=== PATIENT | male | born 1985 | race Caucasian/White ===

== ENCOUNTER 2022-09-30 16:40 | Emergency (ER) | payer BC ==
[2022-09-30 16:57] VITALS: RESP 16
--- NOTE | 2022-09-30 17:43 | ED ---
Upper Extremity HPI - General Chief Complaint: Extremity Injury, Upper Stated Complaint: R hand injury Time Seen by Provider: 09/30/22 17:02 Source: patient Mode of arrival: ambulatory Limitations: no limitations - History of Present Illness Complaint: Injury to:: right, finger -: hour(s) Other Extremity Injury: Fingers: Right Other Injuries: none Handedness: right Place: home Improves With: none Worsens With: none Context: crush Associated Symptoms: denies other symptoms - Related Data Allergies Allergy/AdvReac Type Severity Reaction Status Date / Time No Known Allergies Allergy Verified 09/30/22 16:57 Review of Systems ROS Statement: Those systems with pertinent positive or pertinent negative responses have been documented in the HPI. ROS Other: All systems not noted in ROS Statement are negative. Musculoskeletal: Reports: as per HPI Neurological: Denies: weakness, numbness, paresthesias Past Medical History Past Medical History: Hypertension History of Any Multi-Drug Resistant Organisms: None Reported Additional Past Surgical History / Comment(s): hand surgery Past Psychological History: No Psychological Hx Reported Smoking Status: Never smoker Past Alcohol Use History: None Reported Past Drug Use History: None Reported General Exam Limitations: no limitations General appearance: alert, in no apparent distress Right Hand Wrist exam: Present: tenderness, subungual hematoma (Small area), other (Previous Dupuytren's contracture) Neurosensory exam: Present: 2-point discrimination Vascular: Present: normal capillary refill. Absent: vascular compromise, Pallo Skin exam: Present: warm, dry, intact, normal color. Absent: rash Course Vital Signs 09/30/22 09/30/22 16:53 18:38 Temperature 98 F 98.1 F Pulse Rate 66 68 Respiratory 16 16 Rate Blood Pressure 147/95 132/80 O2 Sat by Pulse 97 Oximetry Disposition Clinical Impression: Finger injury Disposition: HOME SELF-CARE Condition: Good Instructions (If sedation given, give patient instructions): Yeny Shepard (ED) Is patient prescribed a controlled substance at d/c from ED?: No Referrals: Christoph Cash MD [Primary Care Provider] - 1-2 days
--- NOTE | 2022-09-30 17:48 | XR ---
Right fifth finger. HISTORY: Crush injury. COMPARISON: None. TECHNIQUE: 3 views the right fifth finger were obtained. Exam is limited by the technique. FINDINGS: There is no fracture or dislocation. The soft tissues are normal. IMPRESSION: No significant abnormality seen.
[2022-09-30 18:48] VITALS: BP 132/80; PULSE 68; TEMP 98.1
== END 2022-09-30 18:40 | disposition home or self-care (01) ==
LOC: EC 16:40
DX: S69.91XA Unspecified injury of right wrist, hand and finger(s), initial encounter (principal); I10 Essential (primary) hypertension; X58.XXXA Exposure to other specified factors, initial encounter
CPT/HCPCS: 99283